=== PATIENT | male | born 1955 | race Two or more races ===

== ENCOUNTER 2018-11-13 07:49 | Outpatient (CLI) | payer OTHER ==
[~2018-11-13 07:49] MED LIST: COZAAR25 MG; HYZAAR 50-12.1 UDTAB
== END 2018-11-13 08:23 | disposition home or self-care (01) ==
LOC: NUCLEAR 07:49
DX: K82.8 Other specified diseases of gallbladder (principal)
CPT/HCPCS: 78227; A9537

== ENCOUNTER 2020-02-16 09:54 | Outpatient (CLI) | payer OTHER | END 2020-02-16 09:56 | disposition home or self-care (01) | LOC: RAD 09:54 | DX: B34.2 Coronavirus infection, unspecified (principal); Z20.828 Contact with and (suspected) exposure to other viral communicable diseases ==

== ENCOUNTER 2022-07-12 16:19 | Emergency (ER) | payer OTHER ==
[~2022-07-12] VITALS: Ht 172.7 cm; Wt 74.4 kg
[2022-07-12] MEDS ORDERED: METROPOLOL 25 MG. (16:41)
== END 2022-07-12 19:10 | disposition home or self-care (01) ==
LOC: ER 16:19
DX: A05.9 Bacterial foodborne intoxication, unspecified (principal); R11.10 Vomiting, unspecified; Z88.0 Allergy status to penicillin; I10 Essential (primary) hypertension